=== PATIENT | female | born 1995 ===

== ENCOUNTER 2024-09-08 10:58 | Outpatient (CLI) | payer OTHER | END 2024-09-08 11:00 | disposition home or self-care (01) | LOC: PRENATAL 10:58 | PROVIDERS: ATTEND Obstetrics & Gynecology Maternal & Fetal Medicine | DX: O44.00 Complete placenta previa NOS or without hemorrhage, unspecified trimester (principal); O34.30 Maternal care for cervical incompetence, unspecified trimester; Z3A.20 20 weeks gestation of pregnancy ==

== ENCOUNTER 2024-11-10 09:18 | Outpatient (CLI) | payer OTHER | END 2024-11-10 09:19 | disposition home or self-care (01) | LOC: PRENATAL 09:18 | PROVIDERS: ATTEND Obstetrics & Gynecology Maternal & Fetal Medicine | DX: O26.849 Uterine size-date discrepancy, unspecified trimester (principal); O36.8199 Decreased fetal movements, unspecified trimester, other fetus; O34.30 Maternal care for cervical incompetence, unspecified trimester; O32.9XX0 Maternal care for malpresentation of fetus, unspecified, not applicable or unspecified; O26.879 Cervical shortening, unspecified trimester; Z3A.29 29 weeks gestation of pregnancy ==

== ENCOUNTER → 2024-12-15 09:01 | Outpatient (CLI) | payer OTHER | END | disposition home or self-care (01) | LOC: PRENATAL 09:01 | PROVIDERS: ATTEND Obstetrics & Gynecology Maternal & Fetal Medicine | DX: O26.849 Uterine size-date discrepancy, unspecified trimester (principal); O36.8130 Decreased fetal movements, third trimester, not applicable or unspecified; O34.30 Maternal care for cervical incompetence, unspecified trimester; O28.3 Abnormal ultrasonic finding on antenatal screening of mother; Z3A.35 35 weeks gestation of pregnancy ==